=== PATIENT | male | born 1970 | race Caucasian/White ===

== ENCOUNTER 2016-12-29 09:32 | Emergency (ER) | payer BC, OTHER ==
[2016-12-29 09:39] VITALS: TEMP 98.3; BMI 37.4
--- NOTE | 2016-12-29 09:42 | PDOC ---
History of Present Illness - General Chief Complaint: Pain, Acute Stated Complaint: LOWER PELVIC PAIN Time Seen by Provider: 12/29/16 09:41 - History of Present Illness Initial Comments: 46 year old male s/p fall 9 days prior from the height of 6 feet off of a ladder onto his stomach presenting with continued back pain and left inguinal pain. Patient slipped off of a ladder at work and landed on a pile of bricks on his stomach. He went to [facility] at which point he received at least an abdominal CT that he says was negative and sent out with Flexiril and ibuprofen. He states that the medications help for a few hours but wear off and the back pain has become debilitating. He denies bowel, or bladder incontinence but does admit to some tingling on the plantar aspect of his right foot. He also admits to some streaking of blood on his toilet paper yesterday and continued tender chest pain since the fall. Denies nausea, vomiting, diarrhea, constipation, palpitations, headache, or other sick symptoms. 12/29/16 10:35 Past History - Past Medical History Allergies/Adverse Reactions: Allergies Allergy/AdvReac Type Severity Reaction Status Date / Time Penicillins Allergy Mild Rash Verified 12/29/16 09:34 Home Medications: Ambulatory Orders Cyclobenzaprine HCl [Flexeril -] 10 mg PO TID PRN 12/29/16 Naproxen [Naprosyn -] 500 mg PO BID PRN #28 tablet 12/29/16 Other medical history: denies. - Psycho/Social/Smoking Cessation Hx Suicidal Ideation: No Smoking History: Never smoked Review of Systems - Review of Systems Constitutional: No: Chills, Diaphoresis, Fever, Loss of Appetite HEENTM: No: Blurred Vision, Recent change in vision Respiratory: No: Cough, Shortness of Breath Cardiac (ROS): Yes: Chest Pain. No: Irregular Heart Rate, Lightheadedness ABD/GI: Yes: Rectal Bleeding. No: Abdominal Distended, Blood Streaked Bowels, Constipated, Nausea, Poor Appetite, Tarry Stools : No: Dysuria, Discharge Musculoskeletal: Yes: Back Pain, Muscle Pain Integumentary: No: Change in Color, Dryness, Erythema, Flushing Neurological: Yes: Paresthesia, Tingling. No: Headache, Numbness *Physical Exam - Vital Signs Last Vital Signs Temp Pulse Resp BP Pulse Ox 98.3 F 79 19 128/75 99 12/29/16 09:34 12/29/16 09:34 12/29/16 09:34 12/29/16 09:34 12/29/16 09:34 - Physical Exam General Appearance: Yes: Nourished, Appropriately Dressed. No: Apparent Distress HEENT: positive: EOMI, RONALD, Normal ENT Inspection Neck: positive: Tender, Trachea midline, Normal Thyroid, Supple (Over C Spine per ). negative: Rigid Respiratory/Chest: positive: Chest Tender (TTP over pectorals bilaterally at his areas of trauma.), Lungs Clear, Normal Breath Sounds. negative: Respiratory Distress, Accessory Muscle Use Cardiovascular: positive: Regular Rhythm, Regular Rate. negative: S1, S2, Edema , Murmur Gastrointestinal/Abdominal: positive: Normal Bowel Sounds, Flat, Soft, Other ( TTP in left inguinal region with palpable cord like mass running parallel to his left inguinal crease in the subcutaneous layer.). negative: Tender, Organomegaly Male Genitalia: positive: normal genitalia Rectal Exam: positive: heme negative stool, normal exam, NL Prostate, normal rectal tone. negative: melena, decreased tone, heme positive stool, hemorrhoids Musculoskeletal: positive: Other (Spinal tenderness at lower C-Spine (C7-C8), T spine (T7-T8) and L spine (L4-L5).). 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 negative: Motor Strength 5/5 (Motor strenght in all 4 extremeties limited secondary to pain but sensory all intact and reflexes intact. ) ED Treatment Course - LABORATORY CBC & Chemistry Diagram: 12/29/16 10:40 12/29/16 10:40 Medical Decision Making - Medical Decision Making 46 year old previously healthy male s/p fall 9 days ago without head trauma or LOC but continued back pain and left inguinal pain.Will get CT abdomen pelvis with con, ACETYLENE TORCH BURNER, CBC, PT/INR, and CT C-spine to L-Spine to rule out spinal fracture and concerning pelvic/ intra-abdominal pathology. 12/29/16 11:51 Labs returned WNL and pending CT exams. 12/29/16 14:13 CT abdomen only significant for contusion in the left inguinal area with spinal CT films negative for fracture. Will DC patient with Naproxen 400 BID x 2 weeks with ortho follow up. 12/29/16 14:59 *DC/Admit/Observation/Transfer Diagnosis at time of Disposition: Contusion - Discharge Dispostion Admit: No - Prescriptions Prescriptions: Naproxen [Naprosyn -] 500 mg PO BID PRN #28 tablet PRN Reason: Pain - Referrals Referrals: Dario Moore MD [Primary Care Provider] - Pietro Amador MD [Staff Physician] - - Patient Instructions Printed Discharge Instructions: DI for Contusion Additional Instructions: You were seen for pain in your left pelvis and your back. We did CTs of your back and stomach/ pelvis that only showed deep bruising in your left pelvis. Please take your medication as we prescribed and please follow up with the orthopedic physician this week. - Attestations Physician Attestion: 12/29/16 14:35 I, Dr. Aristides Zamudio, attest that this document has been prepared under my direction and personally reviewed by me in its entirety. I further attest, that it accurately reflects all work, treatment, procedures and medical decision -making performed by me. 12/29/16 14:59
--- NOTE | 2016-12-29 10:45 | PDOC ---
Attending Attestation - Resident Resident Name: Aristides Zamudio - ED Attending Attestation I have performed the following: I have examined & evaluated the patient, The case was reviewed & discussed with the resident, I agree w/resident's findings & plan, Exceptions are as noted - HPI HPI: 12/29/16 10:51 46-year-old male with no past medical history presents with persistent diffuse spinal pain and left inguinal pain since December 20. The patient had a fall from a ladder several feet from the ladder and patient fell and landed his abdomen on prexy. Was brought to [facility] and had a CAT scan of the abdomen pelvis performed which reportedly was negative The patient was discharged, the patient was having persistent constant left inguinal pain worse and movement and approximate C8, T6, L5 spinal pain. Denies any urinary or bowel incontinence denies weakness. However, reports some paresthesias along the plantar surface of the foot. Stated he had one episode today when he is moving his bowels and saw some blood on his tissue. - Physicial Exam PE: 12/29/16 10:57 GENERAL: Awake, alert, and fully oriented, in no acute distress. HEAD: No signs of trauma EYES: PERRLA, EOMI, sclera anicteric, conjunctiva clear ENT: Auricles normal inspection, hearing grossly normal, nares patent, oropharynx clear without exudates. NECK: Normal ROM, supple, no lymphadenopathy, JVD, or masses LUNGS: Breath sounds equal, clear to auscultation bilaterally. No wheezes, and no crackles HEART: Regular rate and rhythm, normal S1 and S2, no murmurs, rubs or gallops ABDOMEN: Soft, nontender, normoactive bowel sounds. No guarding, no rebound. No masses PELVIC: TTP left inguinal region tenderness to palpation. Pain reproducible with left flexion and rotation of hip. BACK: TTP ~C8, T6, L5. No step offs appreciated. EXTREMITIES: Normal range of motion, no edema. No clubbing or cyanosis. No cords, erythema, or tenderness NEUROLOGICAL: Cranial nerves II through XII grossly intact. Normal speech, normal gait SKIN: Warm, Dry, normal turgor, no rashes or lesions noted. - Medical Decision Making 12/29/16 11:00 Vital Signs Temp Pulse Resp BP Pulse Ox 98.3 F 79 19 128/75 99 12/29/16 09:34 12/29/16 09:34 12/29/16 09:34 12/29/16 09:34 12/29/16 09:34 I agree with the resident's plan. R/o Spinal fracture. Investigate pelvis with Pelvis CT to r/o occult fracture. Pain control and reassess. 12/29/16 14:12 CT reviewed. No acute findings or fractures in abdomen/pelvis, spine. Supportive care and follow up with orthopedics.
[2016-12-29 10:56] LABS: BASOPHIL 0.7 % (0-2.0); MCH 25.5 pg (25.7-33.7); MCHC 32.3 g/dl (32.0-35.9); MEAN PLT VOLUME 8.9 fl (7.5-11.1); NEUTROPHILS 58.7 % (42.8-82.8); PLATELET COUNT 234 K/MM3 (134-434); WHITE BLOOD COUNT 9.8 K/mm3 (4.0-10.0)
[2016-12-29 11:25] LABS: ALBUMIN 4.2 g/dl (3.4-5.0); ANION GAP 9 (8-16); BILIRUBIN,TOTAL 0.4 mg/dL (0.2-1.0); CALCIUM 9.6 mg/dL (8.5-10.1); CO2 29 mmol/L (21-32); CREATININE 0.9 mg/dL (0.7-1.3); GLUCOSE,RANDOM 94 mg/dL (74-106); SGOT/AST 21 U/L (15-37); SGPT/ALT 47 U/L (12-78); TOT PROT 8.1 g/dl (6.4-8.2)
[2016-12-29 11:26] LABS: ALK PHOS 113 U/L (45-117)
[2016-12-29 11:33] LABS: INR 1.07 (0.82-1.09); PROTHROMBIN TIME (PATIENT) 11.8 SEC (9.98-11.88)
[2016-12-29 16:20] VITALS: BP 133/66; PULSE 62
== END 2016-12-29 15:50 ==
LOC: JER 09:32
CPT/HCPCS: 36415; 72125-TC; 72128-TC; 72131-TC; 74177-TC; 80053; 82272; 85025; 85610; 99283-25

== ENCOUNTER 2017-06-22 09:50 | Emergency (ER) | payer OTHER ==
[2017-06-22 09:58] VITALS: BMI 41.5
--- NOTE | 2017-06-22 10:39 | PDOC ---
History of Present Illness - General Chief Complaint: Lightheaded Stated Complaint: DIZZINESS, NAUSEA Time Seen by Provider: 06/22/17 10:37 - History of Present Illness Initial Comments: 06/22/17 13:54 The patient is a 47 year old male with significant PMH of cervical herniated discs s/p work-related injury in December 2016 who presents to the emergency department with intermittent dizziness since the accident. The patient states the dizziness has been persistent since yesterday prompting him to come to the ED. The patient describes the dizziness as room-spinning that is constant and worsened when lying back. The patient states that he also had mild sternal chest pressure that resolved on its own after 1 minute. The patient also notes 2 episodes of non-bloody, non-bilious vomit in the setting of dizziness yesterday. The patient reports a slight frontal headache, non-radiating that is not exacerbated with noise or light. The patient states he stopped taking his muscle relaxants two days before the onset of the dizziness. The patient states he had an appointment with Dr. Shepherd (neurologist) today for a follow up but cancelled the appointment and decided to come to the ER instead. Denies focal weakness/numbness The patient denies chest pain and shortness of breath. Denies fever, chills, nausea, vomit, diarrhea and constipation. Denies dysuria, frequency, urgency and hematuria. Allergies: NKA Past surgical history: Social history: No reported alcohol, cigarette or drug use. Past History - Past Medical History Allergies/Adverse Reactions: Allergies Allergy/AdvReac Type Severity Reaction Status Date / Time Penicillins Allergy Mild Rash Verified 06/22/17 09:55 Home Medications: Ambulatory Orders Diazepam [Valium] 2 mg PO TID PRN #10 tablet MDD 3 tabs 06/22/17 COPD: No - Suicide/Smoking/Psychosocial Hx Smoking History: Never smoked Have you smoked in the past 12 months: No Information on smoking cessation initiated: No Hx Alcohol Use: No Drug/Substance Use Hx: No Substance Use Type: None Review of Systems - Review of Systems Comments:: 06/22/17 13:54 GENERAL/CONSTITUTIONAL: No fever or chills. No weakness. HEAD, EYES, EARS, NOSE AND THROAT: No change in vision. No ear pain or discharge. No sore throat. GASTROINTESTINAL: No nausea, vomiting, diarrhea or constipation. GENITOURINARY: No dysuria, frequency, or change in urination. CARDIOVASCULAR: No chest pain or shortness of breath. RESPIRATORY: No cough, wheezing, or hemoptysis. MUSCULOSKELETAL: No joint or muscle swelling or pain. No neck or back pain. SKIN: No rash NEUROLOGIC: (+) Vertigo. No headache, loss of consciousness, or change in strength/sensation. ENDOCRINE: No increased thirst. No abnormal weight change. HEMATOLOGIC/LYMPHATIC: No anemia, easy bleeding, or history of blood clots. ALLERGIC/IMMUNOLOGIC: No hives or skin allergy. *Physical Exam - Vital Signs Last Vital Signs Temp Pulse Resp BP Pulse Ox 98.6 F 80 20 123/85 96 06/22/17 09:56 06/22/17 09:56 06/22/17 09:56 06/22/17 09:56 06/22/17 09:56 - Physical Exam Comments: 06/22/17 13:54 GENERAL: Awake, alert, and fully oriented, in no acute distress HEAD: No signs of trauma EYES: PERRLA, EOMI, sclera anicteric, conjunctiva clear ENT: Auricles normal inspection, hearing grossly normal, nares patent, oropharynx clear without exudates. Moist mucosa NECK: Normal ROM, supple, no lymphadenopathy, JVD, or masses LUNGS: Breath sounds equal, clear to auscultation bilaterally. No wheezes, and no crackles HEART: Regular rate and rhythm, normal S1 and S2, no murmurs, rubs or gallops ABDOMEN: Soft, nontender, normoactive bowel sounds. No guarding, no rebound. No masses EXTREMITIES: Normal range of motion, no edema. No clubbing or cyanosis. No cords, erythema, or tenderness BACK: No midline spinal tenderness in cervical/thoracic/lumbar region NEUROLOGICAL: Normal speech, cranial nerves intact, negative pronator drift, 5/ 5 strength in all 4 extremities, normal sensation to light touch in all 4 extremities, normal cerebellar exam, normal gait, normal reflexes and tone SKIN: Warm, Dry, normal turgor, no rashes or lesions noted. [place] p[place]: + on the right with horizontal nystagmus. Negative on the left ED Treatment Course - LABORATORY CBC & Chemistry Diagram: 06/22/17 11:30 06/22/17 11:30 Medical Decision Making - Medical Decision Making 06/22/17 12:51 47-year-old male presents with intermittent room spinning dizziness since December that has become persistent since yesterday. Vitals are unremarkable. On exam [place]Hallpike is positive, consistent with peripheral vertigo. We'll obtain blood work and labs and treat with IVF, reglan, meclizine. Since patient also has a mild headache, we'll obtain a CT scan of his head and reassess. 06/22/17 14:25 Patient reports persistent vertigo despite meclizine, fluids, and Reglan. I have ordered Valium. We have put out a call to the patient's neurologist Dr. Acosta and are awaiting a call back. 06/22/17 16:59 Patient reports significant improvement in vertigo. Received a call back from Dr. Acosta and discussed the case, however he is a spine surgeon (pt identified him as his neurologist) and recommended that we refer the patient to a neurologist. Labs and CT scan results discussed with the patient. I will refer her to neurology. Patient requests discharge home. I discussed the physical exam findings, ancillary test results and final diagnoses with the patient. I answered all of the patient's questions. The patient was satisfied with the care received and felt comfortable with the discharge plan and treatment plan. The patient will call their primary care physician within 24 hours to arrange follow-up and will return to the Emergency Department with any new, persistent or worsening symptoms. *DC/Admit/Observation/Transfer Diagnosis at time of Disposition: Vertigo - Discharge Dispostion Disposition: HOME Condition at time of disposition: Stable Admit: No - Referrals Referrals: Pietro Quinones MD [Staff Physician] - - Patient Instructions Printed Discharge Instructions: DI for Vertigo Additional Instructions: Call Dr. Quinones's office for a follow-up appointment within one week. You have been prescribed Valium for your dizziness, please do not drive or operate machinery while taking this medication as it can make you drowsy. Return to emergency department if you have any new, worsening or concerning symptoms. - Post Discharge Activity - Attestations Physician Attestion: 06/22/17 17:04 I, Dr. Katia Rogers MD, attest that this document has been prepared under my direction and personally reviewed by me in its entirety. I further attest, that it accurately reflects all work, treatment, procedures and medical decision -making performed by me.
[2017-06-22] MEDS ORDERED: METOCLOPRAMIDE HCL INJECTION 10 MG/2 ML VIAL IVPUSH ONE (11:03)
[2017-06-22] MEDS ORDERED: MECLIZINE HCL 25 MG TABLET (FP) PO ONE (11:03)
[2017-06-22] MEDS ORDERED: LACTATED RINGERS SOLUTION 1000 ML INFUS.BAG IV ONE (11:04)
[2017-06-22] MEDS ORDERED: METOCLOPRAMIDE HCL INJECTION 10 MG/2 ML VIAL ONE (11:40)
[2017-06-22] MEDS ORDERED: MECLIZINE HCL 25 MG TABLET (FP) ONE (11:40)
[2017-06-22 12:37] LABS: BASO % 0.5 % (0-2.0); HEMATOCRIT 47.7 % (35.4-49); HEMOGLOBIN 15.2 GM/dL (11.7-16.9); LYMPH % 15.3 % (8-40); MCH 25.1 pg (25.7-33.7); MCHC 31.9 g/dl (32.0-35.9); MEAN CELL VOLUME 78.8 fl (80-96); MONO % 4.7 % (3.8-10.2); NEUT % 78.5 % (42.8-82.8); PLATELET COUNT 255 K/MM3 (134-434); RBC 6.06 M/mm3 (4.00-5.60); WHITE BLOOD COUNT 9.3 K/mm3 (4.0-10.0)
[2017-06-22 13:07] LABS: ANION GAP 5 (8-16); BLOOD UREA NITROGEN 12 mg/dL (7-18); CALCIUM 9.2 mg/dL (8.5-10.1); CHLORIDE 105 mmol/L (98-107); CO2 28 mmol/L (21-32); CREATININE 0.9 mg/dL (0.7-1.3); GLUCOSE,RANDOM 101 mg/dL (74-106); POTASSIUM 4.6 mmol/L (3.5-5.1); SGOT/AST 26 U/L (15-37); SODIUM 138 mmol/L (136-145)
[2017-06-22 13:13] LABS: ALK PHOS 95 U/L (45-117); BILIRUBIN,TOTAL 0.6 mg/dL (0.2-1.0); SGPT/ALT 50 U/L (12-78); TOT PROT 7.7 g/dl (6.4-8.2)
[2017-06-22] MEDS ORDERED: diazePAM 5 MG TABLET PO ONE (14:29)
[2017-06-22] MEDS ORDERED: diazePAM 5 MG TABLET ONE (16:00)
[2017-06-22 17:19] VITALS: BP 131/83; PULSE 72; TEMP 97.9
--- NOTE | 2017-06-23 13:28 | EKG ---
Test Reason : Blood Pressure : / mmHG Vent. Rate : 071 BPM Atrial Rate : 071 BPM P-R Int : 144 ms QRS Dur : 090 ms QT Int : 374 ms P-R-T Axes : 054 020 032 degrees QTc Int : 406 ms NORMAL SINUS RHYTHM POOR R WAVE PROGRESSION ABNORMAL ECG NO PREVIOUS ECGS AVAILABLE NOTE ERROR IN LEAD POSITIONING, LEAD V4 Confirmed by JOSE MURRELL, YUAN ([id number]) on 06/23/2017 1:27:30 PM Referred By: Confirmed By:YUAN GARCIA MD
== END 2017-06-22 17:26 | disposition home or self-care (01) ==
LOC: JER 09:50
PROC: 3E033GC Introduction of Other Therapeutic Substance into Peripheral Vein, Percutaneous Approach (ICD-10-PCS; principal; 2017-06-22)
DX: R42 Dizziness and giddiness (principal)
CPT/HCPCS: 36415; 70450-TC; 71046-TC-FY; 80053; 84484; 85025; 93005; 93010; 99282-25

== ENCOUNTER 2018-03-18 07:42 | Day surgery (SDC) | payer OTHER ==
[2018-03-12 16:15] VITALS: BMI 39.1
[2018-03-18] MEDS ORDERED: oxyCODONE HCL 10 MG SUSTAINED ACTING TABLET ONE (09:24)
[2018-03-18] MEDS: oxyCODONE HCL 10 MG SUSTAINED ACTING TABLET PO ONE (09:30)
[2018-03-18] MEDS ORDERED: BUPIVACAINE HCL/PF (5 MG/ML) 30 ML VIAL IJ ONE (10:03)
[2018-03-18] MEDS ORDERED: MIDAZOLAM HCL 2 MG/2 ML SINGLE DOSE VIAL ONE ×2 (10:03→11:23)
[2018-03-18] MEDS ORDERED: DEXAMETHASONE SOD PHOSPHATE/PF 10 MG/ML SDV ONE (10:03)
[2018-03-18] MEDS ORDERED: THROMBIN (RECOMBINANT) 5,000 UNIT VIAL TP ONE (10:57)
[2018-03-18] MEDS ORDERED: LIDOCAINE 1%/EPI 1:100000 (20 ML MULTI DOSE VIAL) ONE (10:57)
--- NOTE | 2018-03-18 11:17 | HP ---
History & Physical Update - History History: No Change - Physical Physical: No Change - Assessment Assessment: No Change - Plan Plan: No Change (H&P in chart from 02/18/2018)
[2018-03-18] MEDS ORDERED: PROPOFOL 20 ML ONE ×8 (11:23→12:20)
[2018-03-18] MEDS ORDERED: fentaNYL CITRATE 250 MCG/5 ML VIAL ONE ×2 (11:23→11:55)
[2018-03-18] MEDS ORDERED: ONDANSETRON 4 MG/2 ML VIAL ONE (11:49)
[2018-03-18] MEDS ORDERED: DEXAMETHASONE SOD PHOSPHATE 4 MG/1 ML VIAL ONE (11:49)
[2018-03-18] MEDS ORDERED: PHENYLEPHRINE HCL 10 MG/1 ML SINGLE DOSE VIAL ONE (11:57)
[2018-03-18] MEDS ORDERED: LIDOCAINE 1%/EPI 1:100000 (50 ML MULTI DOSE VIAL) INF ONE (12:20)
[2018-03-18] MEDS ORDERED: ePHEDrine SULFATE 50 MG/1 ML AMPULE ONE (12:22)
[2018-03-18] MEDS ORDERED: GELATIN SPONGE,ABSORBABLE 1 GM PACKET TP ONE (13:00)
[2018-03-18] MEDS ORDERED: THROMBIN (BOVINE) 5,000 UNIT VIAL TP ONE (13:00)
[2018-03-18] MEDS ORDERED: oxyCODONE HCL 5 MG TABLET PO PRN (14:13)
[2018-03-18] MEDS ORDERED: ONDANSETRON 4 MG/2 ML VIAL IVPUSH PRN (14:13)
[2018-03-18] MEDS ORDERED: LACTATED RINGERS SOLUTION 1,000 ML IV SCH (14:15)
--- NOTE | 2018-03-18 14:22 | OP ---
Operative Note - Note: Operative Date: 03/18/18 Pre-Operative Diagnosis: spinal stenosis Operation: anterior cervcial fusion and discectomy at C5-6 and C6-7 Surgeon: Sean Acosta Tissue Technician: Varsha Solitario Anesthesiologist/BROOM MACHINE OPERATOR: Shari Seaman Anesthesia: General Specimens Removed: disc at C5-6 and C6-7 Estimated Blood Loss (mls): 20 Fluid Volume Replaced (mls): 1,300 Operative Report Dictated: Yes
--- NOTE | 2018-03-18 14:23 | SURG ---
Surgery Maturity Checker Note Maturity Checker: Varsha Solitario PA-C Date of Service: 03/18/18 Diagnosis: spinal stenosis Procedure: anterior cervcial fusion and discectomy at C5-6 and C6-7 I was present for the entirety of the operative procedure. For further detail, please refer to operative report. Visit type - Case Type Case Type: Scheduled - Emergency Emergency Visit: No - New patient This patient is new to me today: Yes Date on this admission: 03/18/18
[2018-03-18] MEDS: oxyCODONE HCL 5 MG TABLET PO PRN ×2 (14:35→20:33)
[2018-03-18] MEDS ORDERED: ACETAMINOPHEN 325 MG TABLET (FP) ONE (15:44)
[2018-03-18] MEDS: ACETAMINOPHEN 325 MG TABLET (FP) PO SCH ×2 (16:50→22:10)
[2018-03-18] MEDS: diazePAM 5 MG TABLET PO SCH (17:09)
[2018-03-18] MEDS: CEFAZOLIN 1 GM/D5W 1 GRAM/50 ML BAG IVPB SCH (20:24)
--- NOTE | 2018-03-19 01:53 | OP ---
DATE OF OPERATION: 03/18/2018 PREOPERATIVE DIAGNOSIS: Cervical stenosis C5-C6 and C6-C7. POSTOPERATIVE DIAGNOSIS: Cervical stenosis C5-C6 and C6-C7. PROCEDURE: 1. Anterior cervical discectomy and fusion of C5-C6 and C6-C7. 2. Placement of instrumentation of C5-C6 and C6-C7. 3. Placement of prosthetic cage at C5-C6 and C6-C7. SURGEON: Sean Acosta MD REGIONAL GEODETIC ADVISOR: BE Keenan ESTIMATED BLOOD LOSS: 50 mL. INTRAVENOUS FLUIDS: Per Anesthesia. ANESTHESIA: General/SCP block. COMPLICATIONS: None. DISPOSITION: The patient was brought to the PACU in stable condition. INDICATIONS FOR SURGERY: The patient is a 48-year-old gentleman who has been suffering from pain from his neck down his right arm. X-rays and MRI were completed, which noted that he had cervical stenosis secondary to herniated disc. He had gone through a nonoperative course of treatment which included medications, physical therapy, as well as injections. Unfortunately his pain continued to persist. At this point, the risks, benefits, and alternatives were discussed and the patient consented to surgery. DESCRIPTION OF PROCEDURE: The patient was brought to the operating room by the anesthesia staff. After appropriate patient identification was performed, general anesthesia was given. SCP block was also given. Patient was placed supine on the OR bed with arms tucked in at the side. A shoulder roll was placed underneath the shoulder to extend his neck to the point that he could tolerate in the operative holding area. The needle was taped onto his neck to oliva off the C5-C6 level. X-rays were taken to confirm this was correct. The needle was removed and 10 mL of lidocaine with epinephrine was injected into his neck at this time. His neck was prepped and draped in the sterile manner. At this point, a timeout was completed. A 2-inch incision was made on the left side of his neck. Dissection was carried down to the fascia. The fascia was split open at this time. The platysma was cut in line with the skin incision. Next, the internal sternocleidomastoid and strap muscles were developed. Next, an internally rotated carotid sheath as well as the tracheal esophagus was developed. A needle was placed in the C5-C6 disc. X-rays were taken to confirm this. The needle was removed. The longus colli muscles were elevated off and retractor blades were placed in. Ryne monterroso as placed in the body of C5 and C7 and retraction was applied. At this point, the microscope was brought in. A knife was used to incise the disc. Using a series of Mata's, Kerrison's, and curettes a discectomy was completed. End plates were decorticated at this time. A cage filled with bone graft was placed in. A screw was placed in the body of C5, C6, and C7. Ryne pins were removed. AP and lateral x-rays confirmed the instrumentation remained in good position. Final tightening was performed. The platysma was closed with 2-0 Vicryl. The skin was closed with 3-0 Monocryl suture. Dermabond was applied. Steri-Strips were applied and a sterile dressing was applied. The patient was placed on the OR bed, extubated in the OR, and brought to the PACU in stable condition. Cassy RAMIREZ/[id number]
[2018-03-19] MEDS: oxyCODONE HCL 5 MG TABLET PO PRN ×2 (02:01→09:27)
[2018-03-19] MEDS: ACETAMINOPHEN 325 MG TABLET (FP) PO SCH ×2 (03:09→09:26)
[2018-03-19] MEDS: CEFAZOLIN 1 GM/D5W 1 GRAM/50 ML BAG IVPB SCH (03:09)
[2018-03-19 04:41] VITALS: TEMP 98.4
[2018-03-19] MEDS: diazePAM 5 MG TABLET PO SCH (05:06)
[2018-03-19] MEDS ORDERED: LIDOCAINE HCL 1%, 10 MG/ML (20ML VIAL) ONE (07:33)
[2018-03-19] MEDS ORDERED: EPINEPHrine/PF 1 MG/1 ML (1:1,000) AMPULE ONE (07:34)
--- NOTE | 2018-03-19 08:33 | DS ---
Physical Exam: SUBJECTIVE: Patient seen and examined. Doing well. Got oob of bed and ambulated with his personal cane from home. Voiding spontaneously. Tolerating PO clears. Denies n/v/f/c, CP, SOB or BEJARANO. OBJECTIVE: Vital Signs Temperature 98.4 F 03/19/18 04:41 Pulse Rate 88 03/19/18 04:41 Respiratory Rate 20 03/19/18 04:41 Blood Pressure 154/70 03/19/18 04:41 O2 Sat by Pulse Oximetry (%) 94 L 03/19/18 08:13 PHYSICAL EXAM GENERAL: The patient is awake, alert, and fully oriented, in no acute distress. HEAD: Normal with no signs of trauma. EYES: PERRL, extraocular movements intact, sclera anicteric, conjunctiva clear. ENT: Ears normal, nares patent, oropharynx clear without exudates, moist mucous membranes. NECK: Trachea midline, FROM, supple. LUNGS: CTA bilat HEART: RRR ABDOMEN: Soft, nt, nd, normoactive bowel sounds EXTREMITIES: 2+ pulses, warm, well-perfused, no edema. NEUROLOGICAL: CN II - XII grossly intact. Normal speech, gait not observed. PSYCH: Normal mood, normal affect. SKIN: Lumbar dressing c/d/i. LABS HOSPITAL COURSE: Date of Admission:03/18/18 Date of Discharge: 03/19/18 The patient was admitted to the Med-Surg Unit after an elective repair of their C5-C7 stenosis with radiculopathy. Now, s/p C5-C7 ACDF. The day of surgery, the patient ambulated the hallways with assistance. Narcotic and non-narcotic pain management control was achieved with an oral and IV approach. POD #1, an xray was obtained and confirmed hardware placement at C5-C7, no fractures or dislocations. Jeni-operative IV ABX were administered. DVT prophylaxis was achieved with SCDs and early ambulation. The patient ambulated with Physical Therapy and no services were recommended upon discharge. Narcotic scripts and or muscle relaxants were checked with VAS IT QUALITY ANALYST prior to escribe. The discharge instructions and an oral pain management plan were reviewed with the patient. All questions answered. Above plan discussed with Dr. Acosta and agreed. Minutes to complete discharge: 35 <Erlin Hinojosa P - Last Filed: 03/19/18 08:28> Physical Exam: SUBJECTIVE: Patient seen and examined OBJECTIVE: Vital Signs Temperature 98.4 F 03/19/18 04:41 Pulse Rate 104 H 03/19/18 09:21 Respiratory Rate 20 03/19/18 09:21 Blood Pressure 152/75 03/19/18 09:21 O2 Sat by Pulse Oximetry (%) 94 L 03/19/18 08:13 PHYSICAL EXAM GENERAL: The patient is awake, alert, and fully oriented, in no acute distress. HEAD: Normal with no signs of trauma. EYES: PERRL, extraocular movements intact, sclera anicteric, conjunctiva clear. ENT: Ears normal, nares patent, oropharynx clear without exudates, moist mucous membranes. NECK: Trachea midline, full range of motion, supple. LUNGS: Breath sounds equal, clear to auscultation bilaterally, no wheezes, no crackles, no accessory muscle use. HEART: Regular rate and rhythm, S1, S2 without murmur, rub or gallop. ABDOMEN: Soft, nontender, nondistended, normoactive bowel sounds, no guarding, no rebound, no hepatosplenomegaly, no masses. EXTREMITIES: 2+ pulses, warm, well-perfused, no edema. NEUROLOGICAL: Cranial nerves II through XII grossly intact. Normal speech, gait not observed. PSYCH: Normal mood, normal affect. SKIN: Warm, dry, normal turgor, no rashes or lesions noted. LABS HOSPITAL COURSE: Date of Admission:03/18/18 Date of Discharge: 03/21/18 Patient seen and examined Agree with above D/C Planning <Sean Acosta - Last Filed: 03/21/18 10:33> Visit type - Case Type Case Type: Scheduled - New patient This patient is new to me today: Yes Date on this admission: 03/19/18 <Erlin Hinojosa - Last Filed: 03/19/18 08:28>
[2018-03-19 09:22] VITALS: BP 152/75; PULSE 104
[2018-03-19] MEDS ORDERED: AMITRIPTYLINE HCL 10 MG TABLET (FP) PO SCH (10:00)
[2018-03-19] MEDS: oxyCODONE HCL 10 MG SUSTAINED ACTING TABLET PO ONE (12:14)
--- NOTE | 2018-03-21 17:00 | PATH ---
Surgical Pathology Report Patient Name: DAGMAR NORTH Med. Rec. #: [id number] /Age/Gender: 1970 (Age: 48) / M Account: [id number] Location: [facility] Taken: 03/18/2018 Received: 03/18/2018 Reported: 03/21/2018 Physicians: Sean Acosta M.D. Specimen(s) Received C5-7 DISC Clinical History Cervical stenosis Final Diagnosis DISC, C5-7, ANTERIOR CERVICAL DISCECTOMY AND FUSION: BENIGN INTERVERTEBRAL DISC TISSUE. Electronically Signed Karen Lang M.D. Gross Description Received in formalin labeled "C5-7 disc," is a 4.0 x 3.0 x 0.6 cm aggregate of cee fragments of fibrocartilaginous tissue. A representative government relations a portion is submitted in one cassette. /03/19/2018 sa[place]03/19/2018
== END 2018-03-19 11:39 | disposition home or self-care (01) ==
LOC: FASU 07:42 → FM/S 15:56 → FASU 03-19 11:39
PROVIDERS: ATTEND Orthopaedic Surgery Orthopaedic Surgery of the Spine
PROC: 0RG10A0 Fusion of Cervical Vertebral Joint with Interbody Fusion Device, Anterior Approach, Anterior Column, Open Approach (ICD-10-PCS; 2018-03-18)
PROC: 0RG10K0 Fusion of Cervical Vertebral Joint with Nonautologous Tissue Substitute, Anterior Approach, Anterior Column, Open Approach (ICD-10-PCS; 2018-03-18)
PROC: 0RB30ZZ Excision of Cervical Vertebral Disc, Open Approach (ICD-10-PCS; principal; 2018-03-18 12:27)
DX: M48.02 Spinal stenosis, cervical region (principal)
CPT/HCPCS: 22551; 22552; 22845; 22853; C1889; 72050-TC-FY; 94760; 97116-GP; 97162-GP

== ENCOUNTER 2023-04-19 15:24 | Emergency (ER) | payer OTHER ==
[2023-04-19 15:53] VITALS: BP 121/73; PULSE 74; RESP 17; TEMP 98.3; BMI 38.2
== END 2023-04-19 17:17 | disposition home or self-care (01) ==
LOC: JER 15:24
DX: M25.531 Pain in right wrist (principal); D72.829 Elevated white blood cell count, unspecified; G56.01 Carpal tunnel syndrome, right upper limb
CPT/HCPCS: 99282-25